=== PATIENT | female | born 1925 | race Caucasian/White ===

== ENCOUNTER 2016-07-06 16:11 | Emergency (ER) | payer SELFPAY ==
[~2016-07-06] VITALS: Ht 162.6 cm; Wt 48.5 kg
[2016-07-06] VITALS (7 sets, daily range): BP systolic 132–147; BP diastolic 60–67; PULSE 60–63; RESP 20–24; TEMP 97.8; O2SAT 93–100
--- NOTE | 2016-07-06 16:55 | PD ---
HPI Chief Complaint: Syncope/Near-Syncope Time Seen by Provider: 16:17 Travel History International Travel<30 days: No Contact w/Intl Traveler<30days: No Traveled to known affect area: No History of Present Illness HPI This is a hospice patient that lives with her daughter. She is wheelchair- bound. Her daughter took her to the beach today and while she was sitting in a wheelchair she complained of some chest pain. I gave her a sublingual nitroglycerin which is the usual protocol. Shortly after she slumped over in her wheelchair and had decreased responsiveness for few minutes. Paramedics were called and when they arrived they found her with a blood pressure of 100/ 70 and was awake. Patient this time says she feels better. Severity was moderate. No alleviating factors. PFSH Past Medical History Hx Anticoagulant Therapy: Yes (ASA 81 MG ) Anxiety: Yes Cardiovascular Problems: Yes Diminished Hearing: Yes GERD: Yes Hypertension: Yes : 10 Para: 10 Past Surgical History Abdominal Surgery: Yes (HERNIA SX) Social History Alcohol Use: No Tobacco Use: No Substance Use: No Allergies-Medications (Allergen,Severity, Reaction): Coded Allergies: No Known Allergies (Unverified , 07/06/16) Reported Meds & Prescriptions Reported Meds & Active Scripts Active Reported Gnp Melatonin (Melatonin) 3 Mg Tab 3 Mg PO HS PRN Klonopin (Clonazepam) 0.5 Mg Tab 0.5 Mg PO Q6HR PRN Mapap (Acetaminophen) 325 Mg Tab 325 Mg PO Q4-6H PRN Senna (Sennosides) 8.6 Mg Tab 17.2 Mg PO BID Aspirin 81 (Aspirin) 81 Mg Tabdr 81 Mg PO HS Omeprazole 20 Mg Tab 20 Mg PO DAILY Carvedilol 3.125 Mg Tab 3.125 Mg PO BID Lortab (Hydrocodone-Acetaminophen) 10-325 Mg Tab 1 Tab PO Q4H PRN Nitroglycerin SL (Nitroglycerin) 0.4 Mg Subl 0.4 Mg SL DIRECTED PRN ONE TABLET UNDER THE TONGUE NEEDED FOR CHEST PAIN, MAY REPEAT EVERY FIVE MINUTES FOR A TOTAL OF 3 DOSES OR CALL 911 IF NO RELIEF Nitro-Dur Patch 24 HR (Nitroglycerin) 0.2 Mg/Hr Patch 0.2 Mg T-DERMAL DAILY Review of Systems General / Constitutional: No: Fever Eyes: No: Visual changes HENT: No: Headaches Cardiovascular: Positive: Chest Pain or Discomfort, Syncope Respiratory: No: Shortness of Breath Gastrointestinal: No: Abdominal Pain Genitourinary: No: Dysuria Musculoskeletal: No: Pain Skin: No Rash Neurologic: Positive: Syncope, No: Weakness Psychiatric: No: Depression Endocrine: No: Polydipsia Hematologic/Lymphatic: No: Easy Bruising Physical Exam Narrative GENERAL: Thin frail elderly well-developed patient in no apparent distress. SKIN: Warm and dry. HEAD: Atraumatic. Normocephalic. EYES: Pupils equal and round. No scleral icterus. No injection or drainage. ENT: No nasal bleeding or discharge. Mucous membranes pink and moist. NECK: Trachea midline. No JVD. CARDIOVASCULAR: Regular rate and rhythm. No murmur appreciated. RESPIRATORY: No accessory muscle use. Clear to auscultation. Breath sounds equal bilaterally. GASTROINTESTINAL: Abdomen soft, non-tender, nondistended. Hepatic and splenic margins not palpable. MUSCULOSKELETAL: No obvious deformities. No clubbing. No cyanosis. No edema. NEUROLOGICAL: Awake and alert. No obvious cranial nerve deficits. Motor grossly within normal limits. Normal speech. PSYCHIATRIC: Appropriate mood and affect; insight and judgment reasonable given the circumstances . Data Data Last Documented VS Vital Signs Date Time Temp Pulse Resp B/P Pulse Ox O2 Delivery O2 Flow Rate FiO2 07/06/16 18:00 62 20 145/67 99 Nasal Cannula 3.0 07/06/16 16:15 97.8 Orders Basic Metabolic Panel (Bmp) (07/06/16 16:46) Complete Blood Count With Diff (07/06/16 16:46) Ecg Monitoring (07/06/16 16:46) Iv Access Insert/Monitor (07/06/16 16:46) Oximetry (07/06/16 16:46) Sodium Chloride 0.9% Flush (Ns Flush) (07/06/16 17:00) Ckmb (Isoenzyme) Profile (07/06/16 16:55) Troponin I (07/06/16 16:55) Electrocardiogram (07/06/16 16:27) Labs Laboratory Tests Test 07/06/16 16:40 White Blood Count 4.9 TH/MM3 Red Blood Count 4.02 MIL/MM3 Hemoglobin 12.3 GM/DL Hematocrit 37.7 % Mean Corpuscular Volume 93.7 FL Mean Corpuscular Hemoglobin 30.5 PG Mean Corpuscular Hemoglobin 32.5 % Concent Red Cell Distribution Width 13.4 % Platelet Count 212 TH/MM3 Mean Platelet Volume 9.3 FL Neutrophils (%) (Auto) 63.2 % Lymphocytes (%) (Auto) 24.8 % Monocytes (%) (Auto) 11.1 % Eosinophils (%) (Auto) 0.0 % Basophils (%) (Auto) 0.9 % Neutrophils # (Auto) 3.1 TH/MM3 Lymphocytes # (Auto) 1.2 TH/MM3 Monocytes # (Auto) 0.5 TH/MM3 Eosinophils # (Auto) 0.0 TH/MM3 Basophils # (Auto) 0.0 TH/MM3 CBC Comment DIFF FINAL Differential Comment Sodium Level 137 MEQ/L Potassium Level 4.2 MEQ/L Chloride Level 101 MEQ/L Carbon Dioxide Level 28.6 MEQ/L Anion Gap 7 MEQ/L Blood Urea Nitrogen 14 MG/DL Creatinine 0.70 MG/DL Estimat Glomerular Filtration 79 ML/MIN Rate Random Glucose 112 MG/DL Calcium Level 8.2 MG/DL Total Creatine Kinase 70 U/L Troponin I LESS THAN 0.02 NG/ML [facility] Medical Decision Making Medical Screen Exam Complete: Yes Emergency Medical Condition: Yes Medical Record Reviewed: Yes Differential Diagnosis ACS, costochondritis, medication side effect, cardiac arrhythmia Narrative Course I have reviewed the patient's electronic medical record. IV placed CBC is normal Metabolic profile is normal CK is normal Troponin is normal I reviewed her EKG which shows sinus rhythm but no ectopy or ST elevation Extended cardiac monitoring reveals sinus rhythm without ectopy I observed her for while and she remains well. Minimally symptomatic at this time. No evidence of ACS. She is a hospice patient and not desiring extensive workup or admission . She is stable for outpatient follow-up Diagnosis Primary Impression: Chest pain at rest Additional Impression: Syncope Qualified Code: R55 - Syncope, unspecified syncope type Additional Instructions: The patient was advised to follow up with their physician and return if they worsen. Med/Other Pt SpecificInfo: Other Disposition: 01 DISCHARGE HOME Condition: Stable Fortunato Sue MD Jul 06, 2016 16:55
[2016-07-06] MEDS ORDERED: SODIUM CHLORIDE 0.9% FLUSH 5 ML FLUSH IVF PRN (17:00)
[2016-07-06 17:09] LABS: AUTOMATED NEUTROPHIL # 3.1 TH/MM3 (1.8-7.7); BASOPHIL % 0.9 % (0.0-2.0); HEMATOCRIT 37.7 % (35.0-46.0); HEMO FLAGS DIFF FINAL; LYMPH % 24.8 % (9.0-44.0); LYMPHOCYTE # 1.2 TH/MM3 (1.0-4.8); MEAN CELL VOLUME 93.7 FL (80.0-100.0); MEAN CORPUSCULAR HEMOGLOBIN 30.5 PG (27.0-34.0); MEAN CORPUSCULAR HGB CONC 32.5 % (32.0-36.0); MONO % 11.1 % (0.0-8.0); NEUT % 63.2 % (16.0-70.0); PLATELET COUNT 212 TH/MM3 (150-450); RED BLOOD COUNT 4.02 MIL/MM3 (4.00-5.30); RED CELL DISTRIBUTION WIDTH 13.4 % (11.6-17.2); WHITE BLOOD COUNT 4.9 TH/MM3 (4.0-11.0)
[2016-07-06] MEDS ORDERED: NITR0.2D T-DERMAL (17:26)
[2016-07-06] MEDS ORDERED: NITR1SUB3 SL (17:27)
[2016-07-06 17:34] LABS: BICARBONATE 28.6 MEQ/L (21.0-32.0); POTASSIUM 4.2 MEQ/L (3.5-5.1)
[2016-07-06] MEDS ORDERED: HYDR-3535 PO (17:35)
[2016-07-06] MEDS ORDERED: ASPI-110 PO (17:35)
[2016-07-06] MEDS ORDERED: CARV3.12 PO (17:35)
[2016-07-06] MEDS ORDERED: OMEP20TA PO (17:35)
[2016-07-06] MEDS ORDERED: SENN8.6T5 PO (17:36)
[2016-07-06] MEDS ORDERED: CLON.5 PO (17:36)
[2016-07-06] MEDS ORDERED: MAPA325T PO (17:36)
[2016-07-06] MEDS ORDERED: GNP3TAB PO (17:36)
[2016-07-06 17:52] LABS: CREATINE KINASE 70 U/L (26-192)
--- NOTE | 2016-07-07 11:42 | EKG ---
Date Performed: 07/06/2016 Time Performed: 16:27:33 PTAGE: 89 years EKG: Sinus rhythm NORMAL ECG NO PREVIOUS TRACING DOCTOR: Rome Mcdonald Interpretating Date/Time 07/07/2016 11:41:38
== END 2016-07-06 20:20 | disposition home or self-care (01) ==
LOC: NEPC 16:11
DX: R07.9 Chest pain, unspecified (principal); R55 Syncope and collapse; Z79.82 Long term (current) use of aspirin; I10 Essential (primary) hypertension
CPT/HCPCS: 80048; 82550; 84484; 85025; 93005